=== PATIENT | male | born 1985 | race Caucasian/White ===

== ENCOUNTER 2016-08-07 12:18 | Emergency (ER) | payer OTHER ==
[~2016-08-07] VITALS: Ht 185.4 cm; Wt 81.3 kg
[2016-08-07 12:29] VITALS: TEMP 37.1; Ht 185.4 cm; Wt 81.3 kg
[2016-08-07] MEDS ORDERED: OXYC1TAB3 PO ×2 (13:08→13:12)
[2016-08-07] MEDS ORDERED: AMOX500C3 PO ×2 (13:08→13:12)
[2016-08-07 13:21] VITALS: BP 140/76; PULSE 96; O2SAT 97
[2016-08-07] MEDS ORDERED: PENI-82 PO (13:22)
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
== END 2016-08-07 13:22 | disposition home or self-care (01) ==
LOC: C.EDB 12:20 → C.EDD 13:22
DX: K08.89 Other specified disorders of teeth and supporting structures (principal); J45.909 Unspecified asthma, uncomplicated

== ENCOUNTER 2020-01-30 08:15 | Observation (INO) ==
[2020-01-30] MEDS ORDERED: CEFAZOLIN 2000MG 2,000 MG/15 ML SYR IV STA (08:25)
[2020-01-30] MEDS ORDERED: SODIUM CHLORIDE 0.9% 1000ML 1,000 ML IV ONE (08:25)
[2020-01-30] MEDS ORDERED: SODIUM CHLORIDE 0.9% 250 ML IV PRN (08:25)
[2020-01-30] MEDS: ONDANSETRON INJ 2 MG/ML 2 ML VIAL IV STA (08:36)
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
[2020-01-30 08:58] LABS: Hematocrit (blood only) 40.6 % (42-52); Hemoglobin 14.1 g/dL (14.0-18.0); Mean Corpuscular Hemoglobin 31.5 pg (25-34); Mean Corpuscular Hgb Conc 34.7 g/dL (32-36); Mean Corpuscular Volume 90.6 fL (80-100); Mean Platelet Volume 9.1 fL (7.4-10.4); Platelet Count 173 K/uL (130-400); RDW Coefficient of Variation 12.3 % (11.5-14.5); Red Blood Count 4.48 M/uL (4.7-6.1); White Blood Count 6.66 K/uL (4.8-10.8)
[2020-01-30 09:08] LABS: INR 1.1 (0.9-1.1); Partial Thromboplastin Ratio 1.1; Partial Thromboplastin Time 30.5 Seconds (21.0-31.0); Prothrombin Time 11.3 Seconds (9.0-12.0)
[2020-01-30 09:14] LABS: Albumin Level 2.8 gm/dl (3.4-5.0); BUN Creatinine Ratio 18.1 (10-20); Calcium 7.7 mg/dl (8.5-10.1); Creatinine Clr Calc Pharmacy 119.3 ml/min; Est GFR (African American) 120.6; Potassium 3.6 mmol/L (3.5-5.1)
[2020-01-30 09:17] LABS: Bilirubin,Total 0.4 mg/dl (0.2-1); Globulin 2.8 gm/dl (2.5-4.0); Total Protein 5.6 gm/dl (6.4-8.2)
[2020-01-30 09:18] LABS: iSTAT Creatinine 0.9 mg/dl (0.6-1.3); iSTAT Hemoglobin 13.3 g/dl (14.0-18.0); iSTAT Ionized Calcium 1.17 mmol/l (1.12-1.32); iSTAT Potassium 3.5 mmol/L (3.3-5.0)
[2020-01-30] MEDS: fentaNYL citrate 100 MCG/2 ML VIAL IV PRN ×2 (09:23→10:25)
--- NOTE | 2020-01-30 09:27 | XRay Report ---
XR forearm RT 2V HISTORY: 34 years-old Male multiple lacerations patient presents with soft tissue lacerations of the bilateral forearms COMPARISON: Left forearm radiographs of same day TECHNIQUE: 2 views the right forearm FINDINGS: Soft tissue swelling with probable lacerations. No acute fracture, dislocation or opaque foreign body . IMPRESSION: Soft tissue injuries without acute fracture or opaque foreign body. ACT 112: Negative or not required by law. The above report was generated using voice recognition software. It may contain grammatical, syntax o r spelling errors. Electronically signed by: Justino Jacobs M.D. 01/30/2020 9:25 AM
--- NOTE | 2020-01-30 09:33 | XRay Report ---
XR forearm LT 2V CLINICAL HISTORY: multiple lacerations COMPARISON: None. DISCUSSION: Extensive soft tissue lacerations over the distal forearm. No acute bony abnormality. Cortical margins are intact. IMPRESSION: Soft tissue lacerations over the distal forearm. No acute bony abnormality. ACT 112: Negative or not required by law. The above report was generated using voice recognition software. It may contain grammatical, syntax or spelling errors. Electronically signed by: Fredis Mckinney M.D. 01/30/2020 9:31 AM
[2020-01-30 10:55] LABS: ALC (manual) 3.45 K/uL (1.2-3.4); Basophils # (manual) 0.17 K/uL (0-0.2); Basophils % (manual) 2.6 %; Eosinophils # (manual) 0.23 K/uL (0-0.5); Eosinophils % (manual) 3.5 %; Lymphocytes # (manual) 1.87 K/uL (1.2-3.4); Lymphocytes % (manual) 28.1 %; Monocytes # (manual) 0.41 K/uL (0.11-0.59); Monocytes % (manual) 6.1 %; Reactive Lymphocytes # (manual) 1.58 K/uL; Reactive Lymphocytes % (manual) 23.7 %
--- NOTE | 2020-01-30 12:01 | Anesthesiology Consultation ---
Date of Service January 30, 2020 Assessment & Plan (1) Encounter for pre-operative examination: Chart Review Chart Review: Acceptable Risk for Surgery History Surgery Operation Date: 01/30/20 07:00 Proposed Procedures p Bilateral Arm Wound Incision, Drainage and Wound Closure - Jeremy Foley MD Height/Weight Height: 6 ft 2 in Weight: 77 kg Allergies Allergy/AdvReac Type Severity Reaction Status Date / Time No Known Allergies Allergy Unverified 01/30/20 09:12 Medications Home Medications Medication Instructions Recorded Confirmed Last Taken No Known Home Medications 01/30/20 01/30/20 Unknown Active Medications Generic Name Dose Route Start Last Admin Trade Name Freq PRN Reason Stop Dose Admin Fentanyl Citrate 50 mcg 01/30/20 08:25 01/30/20 10:25 Fentanyl Citrate IV 02/13/20 08:24 50 mcg Q15M PRN Administration Pain Sodium Chloride 250 mls @ 15 mls/hr 01/30/20 08:25 01/30/20 11:03 Nss IV 01/30/20 18:28 Infused .[id number] PRN Infusion For Transfusion NPO Date Last Intake of Fluids: 01/30/20 Time Last Intake of Fluids: 01:50 Date Last Intake of Solids: 01/29/20 Time Last Intake of Solids: 23:00 Past Medical History Medical History No pertinent past medical history Social History Smoking Status: Former smoker Physical Exam Vital Signs Last Vital Signs Temp 36.7 C 01/30/20 11:13 Pulse 85 01/30/20 11:13 Resp 20 01/30/20 11:13 BP 145/77 H 01/30/20 11:13 Pulse Ox 98 01/30/20 11:13 Testing Laboratory Results 01/30/20 08:44 01/30/20 08:44 PT 11.3 Seconds (9.0-12.0) 01/30/20 08:44 INR 1.1 (0.9-1.1) 01/30/20 08:44 APTT 30.5 Seconds (21.0-31.0) 01/30/20 08:44 Blood Type O Positive 01/30/20 08:44 Antibody Screen NEGATIVE 01/30/20 08:44 01/30/20 08:53 POC Glucose (other) 100 H
[2020-01-30] MEDS ORDERED: ONDANSETRON INJ 2 MG/ML 2 ML VIAL IV PRN ×2 (12:05→19:05)
[2020-01-30] MEDS ORDERED: HYDROmorphone INJ 1 MG/ML SYRINGE IV PRN (12:05)
[2020-01-30] MEDS ORDERED: ATROPINE SULFATE 0.1 MG/ML 10ML SYR IV PRN (12:05)
[2020-01-30] MEDS ORDERED: BUPIVACAINE 0.5 % 5 MG/1 ML MPF 30ML VIAL ONE (12:33)
[2020-01-30] MEDS ORDERED: BACITRACIN INJ 50,000 UNIT VIAL ONE ×2 (12:33→14:26)
[2020-01-30] MEDS ORDERED: MIDAZOLAM HCL 1 MG/ML 2ML VIAL ONE (12:35)
[2020-01-30] MEDS ORDERED: fentaNYL citrate 100 MCG/2 ML VIAL ONE ×2 (12:35→13:44)
[2020-01-30] MEDS ORDERED: ONDANSETRON INJ 2 MG/ML 2 ML VIAL ONE ×2 (12:35→13:43)
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
--- NOTE | 2020-01-30 13:12 | History & Physical Bridge Note ---
Date of Service January 30, 2020 History & Physical Bridge Note I have examined the patient, reviewed the History & Physical and in the interval since the performance of the History & Physical I have noted the following changes of clinical significance: no changes noted,bilateral multiple lacerations of arms between wrist and elbow tendon and sensory function intact.
[2020-01-30] MEDS ORDERED: DEXAMETHASONE SOD INJ 4 MG/ML VIAL ONE (13:43)
[2020-01-30] MEDS ORDERED: CEFAZOLIN 250 MG/ML 1 GM VIAL ONE (13:43)
[2020-01-30] MEDS ORDERED: PROPOFOL IV EMULSION 10 MG/ML 20 ML VIAL IV ONE (13:43)
[2020-01-30] MEDS ORDERED: LIDOCAINE HCL 2% 2 ML VIAL/AMP(20MG/ML) INFIL ONE (13:43)
[2020-01-30] MEDS ORDERED: KETOROLAC 30 MG/ML VIAL ONE (13:43)
[2020-01-30] MEDS ORDERED: CEFAZOLIN 3000MG/72.5 ML BAG IV STA (13:57)
--- NOTE | 2020-01-30 14:18 | Emergency Department Note ---
ED Visit Note I was asked to evaluate this patient by Isi Iniguez PA-C. Patient is noted to have several distal upper extremity lacerations, significant in length and largely exposing the fascia with only minimal violation. Patient seems to have full strength in the bilateral hands with full wrist flexion and extension. He has full sensation and strength to the fingers bilaterally. He denies any other injuries. Orthopedics was consulted. Patient has been taken to the operating room for definitive management. Please refer to Isi Iniguez PA-C's notes for further details of the history, physical and visit. .
[2020-01-30] MEDS ORDERED: DexMEDEtomidine HCL IV 100 MCG/ML VIAL ONE (16:40)
--- NOTE | 2020-01-30 17:19 | Post Operative Brief Note ---
Immediate Post Op Note v1 Date of Surgery January 30, 2020 Pre & Post Diagnosis Operation Date: 01/30/20 07:00 Pre-Op Diagnosis: Bilateral Arm Lacerations Post-Op Diagnosis: Bilateral Arm Lacerations I identified the patient and participated in the time-out.: Yes Procedure Operation Date: 01/30/20 07:00 Actual Procedures p Left arm, Irrigation and debridement multiple wound closures, Left extensor carpi longus radialis repair, and Left extensor carpi ulnaris(Bilateral), multiple laceration complex repair- Jeremy Foley MD Surgeon Jeremy Foley MD Practice Billing Associate ALICE Cummings Estimated Blood Loss 10 Findings Consistent with Post-Op Diagnosis Anesthesia Type General Complications none Disposition Accompanied Patient To Recovery: No Disposition: Recovery Room Overlapping Procedure I was immediately available: during the entire case.
--- NOTE | 2020-01-30 18:18 | Anesthesiology Progress Note ---
Date of Service January 30, 2020 Anesthesia Post Procedure Vital Signs Vital Signs: Temp Pulse Pulse Pulse Resp BP BP 01/30/20 17:55 82 12 129/73 01/30/20 17:45 80 14 124/65 01/30/20 17:35 79 12 114/62 01/30/20 17:27 36.2 C L 79 16 115/68 01/30/20 11:13 36.7 C 85 20 01/30/20 10:55 78 20 142/77 H 01/30/20 10:31 94 H 15 01/30/20 10:30 93 H 16 129/68 01/30/20 10:00 94 H 12 130/73 01/30/20 09:31 86 14 01/30/20 09:30 87 17 119/70 01/30/20 09:01 86 12 01/30/20 09:00 92 H 17 135/79 01/30/20 08:31 15 01/30/20 08:30 88 16 116/79 01/30/20 08:26 36.8 C 78 17 126/70 BP Pulse Ox 01/30/20 17:55 99 01/30/20 17:45 98 01/30/20 17:35 98 01/30/20 17:27 99 01/30/20 11:13 145/77 H 98 01/30/20 10:55 99 01/30/20 10:31 96 01/30/20 10:30 96 01/30/20 10:00 01/30/20 09:31 98 01/30/20 09:30 98 01/30/20 09:01 01/30/20 09:00 01/30/20 08:31 98 01/30/20 08:30 98 01/30/20 08:26 97 Pain Intensity Bilateral Arm: Pain Intensity: 2 Transfer of Care Handoff Completed per policy Notes Mental Status: alert / awake / arousable Patient Amnestic to Procedure: Yes Nausea / Vomiting: adequately controlled Pain: adequately controlled Airway Patency, RR, SpO2: stable & adequate BP & HR: stable & adequate Hydration State: stable & adequate Anesthetic Complications: no major complications apparent and Pt Satisfied with anesthetic care
[2020-01-30] MEDS ORDERED: METOCLOPRAMIDE HCL INJ 5 MG/ML 2 ML VIAL IV PRN (19:05)
[2020-01-30] MEDS ORDERED: HYDROmorphone INJ 0.5 MG/0.5 ML SYR IV PRN (19:05)
[2020-01-30] MEDS ORDERED: bisacodyL 10 MG SUPP PR PRN (19:05)
[2020-01-30] MEDS ORDERED: MAGNESIUM HYDROXIDE SUSP 30 ML UDC PO PRN (19:05)
[2020-01-30] MEDS ORDERED: NALOXONE HCL 0.4 MG/1 ML VIAL/CARP IV PRN (19:05)
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
[2020-01-30] MEDS: SODIUM CHLORIDE 0.9% 1000ML 1,000 ML IV SCH (19:30)
[2020-01-30] MEDS: CEFAZOLIN 1000MG 1,000 MG/7.5 ML SYR IV SCH (21:00)
[2020-01-30] MEDS ORDERED: SENNA 8.6 MG TAB PO SCH (21:00)
[2020-01-30] MEDS: DOCUSATE SODIUM 100 MG CAP PO SCH (21:01)
[2020-01-30] MEDS: ACETAMINOPHEN 500 MG TAB PO SCH (21:01)
[2020-01-30] MEDS: OXYCODONE HCL IR 5 MG TAB (IMMEDIATE RELEASE) PO PRN (21:16)
[2020-01-31] MEDS: OXYCODONE HCL IR 5 MG TAB (IMMEDIATE RELEASE) PO PRN ×3 (01:01→09:47)
[2020-01-31] MEDS ORDERED: CeleBREX 200 MG CAP PO SCH (01:45)
[2020-01-31] MEDS: HYDROmorphone INJ 1 MG/ML SYRINGE IV PRN ×2 (01:57→06:41)
[2020-01-31] MEDS: CEFAZOLIN 1000MG 1,000 MG/7.5 ML SYR IV SCH (05:29)
[2020-01-31] MEDS: ACETAMINOPHEN 500 MG TAB PO SCH ×2 (05:30→13:26)
[2020-01-31 05:48] LABS: Hematocrit (blood only) 35.1 % (42-52); Hemoglobin 11.8 g/dL (14.0-18.0); Mean Corpuscular Hemoglobin 31.6 pg (25-34); Mean Corpuscular Hgb Conc 33.6 g/dL (32-36); Mean Corpuscular Volume 93.9 fL (80-100); Mean Platelet Volume 9.4 fL (7.4-10.4); Platelet Count 174 K/uL (130-400); RDW Coefficient of Variation 12.6 % (11.5-14.5); RDW Standard Deviation 43.2 fL (36.4-46.3); Red Blood Count 3.74 M/uL (4.7-6.1); White Blood Count 10.94 K/uL (4.8-10.8)
[2020-01-31] MEDS ORDERED: CEFAZOLIN 3000MG/72.5 ML BAG IV SCH (06:00)
[2020-01-31 06:34] LABS: BUN Creatinine Ratio 17.5 (10-20); Calcium 7.3 mg/dl (8.5-10.1); Creatinine Clr Calc Pharmacy 137.5 ml/min; Est GFR (African American) 129.9; Est GFR (Non-African American) 112.1; Potassium 4.2 mmol/L (3.5-5.1)
[2020-01-31] MEDS: SODIUM CHLORIDE 0.9% 1000ML 1,000 ML IV SCH (06:38)
[2020-01-31] MEDS ORDERED: KETOROLAC 30 MG/ML VIAL IV ONE (07:35)
[2020-01-31] MEDS ORDERED: HYDROmorphone INJ 1 MG/ML SYRINGE IV PRN (07:39)
[2020-01-31] MEDS ORDERED: KETOROLAC 30 MG/ML VIAL IV SCH (07:45)
[2020-01-31] MEDS: DOCUSATE SODIUM 100 MG CAP PO SCH (08:04)
--- NOTE | 2020-01-31 08:41 | Orthopedic Progress Note ---
Date of Service January 31, 2020 Assessment & Plan (1) Laceration of multiple sites of left upper extremity: POD #1, B/L Forearm lacerations I&D and wound closures, left extensor tendon repairs X2 Pain control. D/C home today when pain controlled with PO meds. (2) Laceration of multiple sites of right upper extremity: Admission and Anticipated Discharge Date Admission Date: January 30, 2020 Subjective POD #1, Pain is main issues, has had addition of toradol. Denies SOB, Cp, N/V. No dizziness. Physical Exam Physical Exam: B/L forearm dressing c/d/i, no signs of bleeding through. Fingers mobile B/L. Patient A&Ox3. Results & Data ([facility]) Vital Signs (Past 12 Hours) Vital Signs Temp Pulse Resp BP Pulse Ox 01/31/20 06:55 36.8 C 76 18 135/67 98 01/31/20 04:06 36.9 C 78 16 108/50 L 98 01/30/20 23:49 37.0 C 84 17 111/53 L 97 01/30/20 20:54 36.7 C 72 15 115/64 94 (1) Laceration of multiple sites of right upper extremity Encounter type: initial encounter Qualified Code(s): S41.111A - Laceration without foreign body of right upper arm, initial encounter (2) Laceration of multiple sites of left upper extremity Encounter type: initial encounter Qualified Code(s): S41.112A - Laceration without foreign body of left upper arm, initial encounter
[2020-01-31] MEDS ORDERED: MULTIVITAMIN TAB PO SCH (09:00)
[2020-01-31] MEDS ORDERED: HYDROmorphone HCL 2 MG TAB PO PRN (11:48)
[2020-01-31] MEDS ORDERED: Nursing to Pharmacy Communication SCH (12:00)
[2020-01-31] MEDS ORDERED: NICOTINE POLACRILEX 2 MG GUM MT PRN (12:05)
[2020-01-31] MEDS: HYDROmorphone HCL 2 MG TAB PO PRN ×3 (12:21→17:27)
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
== END 2020-01-31 17:57 | disposition home or self-care (01) ==
LOC: ED 08:15 → 3N 11:02 → OR 11:02